=== PATIENT | male | born 1940 | race Caucasian/White ===

== ENCOUNTER 2016-08-02 01:26 | Inpatient (IN) | payer OTHER, MEDICARE ==
[~2016-08-02] VITALS: Ht 180.3 cm; Wt 94.3 kg
[2016-08-02] MEDS ORDERED: DILAUDID2 M1 PO (13:21)
[2016-08-02] MEDS ORDERED: MIRALAX17 G1 PO (13:21)
[2016-08-02] MEDS ORDERED: MS CONTIN15 M2 PO (13:21)
[2016-08-02] MEDS ORDERED: COLACE100 M1 PO (13:21)
[2016-08-02] MEDS ORDERED: ASPIRIN EC325 M2 PO (13:21)
[2016-08-02] MEDS ORDERED: PRILOSEC OTC20 M1 PO (13:21)
--- NOTE | 2016-08-02 13:26 | Patient Discharge Instructions ---
Discharge Instructions General Discharge Information You were seen/treated for: RIGHT HIP PAIN RELATED TO OSTEOARTHRITIS You had these procedures: RIGHT TOTAL HIP REPLACEMENT Watch for these problems: INCREASING PAIN DESPITE THE USE OF PAIN MEDICATION. INCREASING REDNESS, WARMTH, OR SWELLING. DRAINAGE OF ANY TYPE FROM INCISION. INABILITY TO BEAR WEIGHT ON RIGHT LEG. FEVER GREATER THAN 101.5 DEGREES. Do not soak the wound: Yes No bath, but you may shower: Yes Other wound care: KEEP WOUND CLEAN AND DRY. NO OINTMENTS OF ANY TYPE ON OR NEAR INCISION, NO EXCEPTIONS. DAILY DRY DRESSING CHANGES, FIRST DRESSING CHANGE TO BE DONE BY HOME CARE NURSE ON 08/04/2016. Special Instructions: ASPIRIN: YOU WILL BE REQUIRED TO TAKE ASPIRIN TWICE DAILY FOR A MINIMUM OF 3 WEEKS. THIS IS VERY IMPORTANT IT WILL HELP PROTECT YOU FROM DEVELOPING A BLOOD CLOT. PLEASE TAKE WITH FOOD TO PROTECT YOUR STOMACH LINING. YOU HAVE ALSO BEEN GIVEN PRILOSEC WHICH IS A MEDICATION THAT WILL ALSO HELP TO PROTECT YOUR STOMACH. CONSTIPATION: CONSTIPATION IS COMMON WITH THE USE OF PAIN MEDICATIONS. DR. VERA HAS GIVEN YOU COLACE AND MIRALAX TO HELP WITH YOUR BOWEL MOVEMENTS. PLEASE TAKE THESE MEDICATIONS DIRECTED. Please follow up with Dr. Oro as an outpatient Please follow up with as an outpatient Please follow up with as an outpatient Diet Continue normal diet: Yes Recommended Diet: Regular Additional DIET Information: ADVANCE TOLERATED Activity Full Activity/No Limits: No Activity Self Limited: Yes Pounds, do NOT lift more than: 10 Additional ACTIVITY Info: WEIGHT BEAR TOLERATED Acute Coronary Syndrome Inclusion Criteria At DC or during hospital stay patient has or had the following: ACS DIAGNOSIS No Discharge Core Measures Meds if any: Prescribed or Continued at Discharge Meds if any: NOT Prescribed or Continued at Discharge Congestive Heart Failure Inclusion Criteria At DC or during hospital stay patient has or had the following: CHF DIAGNOSIS No Discharge Core Measures Meds if any: Prescribed or Continued at Discharge Meds if any: NOT Prescribed or Continued at Discharge Cerebrovascular accident Inclusion Criteria At DC or during hospital stay patient has or had the following: CVA/TIA Diagnosis No Discharge Core Measures Meds if any: Prescribed or Continued at Discharge Meds if any: NOT Prescribed or Continued at Discharge Venous thromboembolism Inclusion Criteria VTE Diagnosis No VTE Type NONE VTE Confirmed by (Test) NONE Discharge Core Measures - Per Current guidelines, there needs to be overlap - treatment for the first 5 days of Warfarin therapy. - If discharged on Warfarin prior to 5 days of - overlap therapy, the patient will need to be - assessed for post discharge needs including - *Post discharge parental anticoagulation - *Warfarin and/or parental anticoagulation education - *Follow up date to check INR post discharge At least 5 days overlap therapy as Inpatient No Meds if any: Prescribed or Continued at Discharge Note: Overlap Therapy is Warfarin and Anticoagulant Meds if any: NOT Prescribed or Continued at Discharge
--- NOTE | 2016-08-02 13:27 | Admission Core Measures ---
Admission Meds I reviewed the following Meds: Current Medications Sig/Elizabeth Start time Last Medication Dose Stop Time Status Admin Acetaminophen 975 MG ONCE 08/02 NR (Tylenol) 08/02 2358 Oxycodone HCl 10 MG ONCE 08/02 NR (Roxicodone) 08/02 2358 Acute Coronary Syndrome Inclusion Criteria ACS Diagnosis No Inpatient Core Measures LDL Reminder: If No, please order W/I first 24hr of stay Congestive Heart Failure Inclusion Criteria CHF Diagnosis No Cerebrovascular accident Inclusion Criteria CVA/TIA Diagnosis No Inpatient Core Measures Bedside Swallow Eval Reminder: If BSE failed, place ST order Antithrombotic Reminder: Order Antithrombotic Medication by end of day 2 Antithrombotic Reminder: Document Reason Antithrombotic Not ordered by end of day 2 AFIB/Flutter Reminder: If Present, add to problem list AFIB/Flutter Reminder: Order Anticoag Medication for pts with AFIB/Flutter Atherosclerosis Reminder: If Present, add to problem list LDL Reminder: If No, please order W/I first 24hr of stay PT Order Reminder: If No, please order Venous thromboembolism Inpatient Core Measures VTE Risk Factors: Age > 40, Surgery No [facility] VTE prophylaxis d/t No contraindications No VTE Pharm Prophylaxis d/t No contraindications Inclusion Criteria - Per Current guidelines, there needs to be overlap - treatment for the first 5 days of Warfarin therapy. - Parenteral Anticoagulation (IV or SC) needs to be - given along with Warfarin therapy. VTE Diagnosis No VTE Type NONE VTE Confirmed by (Test) NONE Problem List As ranked by this Provider includes Assessment & Plan 1. Unilateral primary osteoarthritis, right hip HOME MEDS Home Med List Aspirin (Ecotrin*) 325 MG TABLET.DR 1 TAB PO BID ANTICOAGULATION Docusate Sodium (Colace) 100 MG CAPSULE 1 CAP PO BID CONSITPATION Hydromorphone HCl (Dilaudid) 2 MG TABLET 1-2 TAB PO Q4-6 PRN PAIN Morphine Sulfate (Ms Contin) 15 MG TABLET.ER 1 TAB PO BID PAIN Omeprazole Magnesium (Prilosec Otc) 20 MG TABLET.DR 1 TAB PO DAILY GI PROTECTION Polyethylene Glycol 3350 (Miralax) 17 GRAM POWD.PACK 1 PAC PO DAILY CONSTIPATION
--- NOTE | 2016-08-02 13:32 | Surgical Discharge Summary ---
Visit Information Visit Dates Admission Date: 08/02/16 Discharge Date: 08/06/16 History of Present Illness Chief Complaint: RIGHT HIP PAIN RELATED TO OSTEOARTHRITIS Surgical History Pertinent Surgical History: non-contributory Review of Systems: SEE H&P Hospital Course Course Attending Physician: DUSTIN VERA MD Primary Care Physician: MIKE MORFIN,[place] Hospital Course: HAMLET WAS ADMITTED TO THE HOSPITAL ON 08/02/2016 FOR AN ELECTIVE RIGHT TOTAL HIP REPLACEMENT. HE TOLERATED THE PROCEDURE WELL. HE WAS TRANSFERRED TO A GENERAL SURGICAL FLOOR. HIS VITAL SIGNS WERE STABLE AND WITHIN NORMAL LIMITS. HE REMAINED NEUROVASCULARLY INTACT. ON POST-OP DAY 3, HE DEVELOPED AN EXPRESSIVE APHASIA. HE WAS EVALUATED BY NEUROLOGY, CT IMAGING WAS OBTAINED AND IT WAS DETERMINED THAT HE CAN BE FOLLOWED AN OUTPATIENT. HIS DIET WAS ADVANCED AND TOELRATED. HE VOIDED SPONTANEOUSLY. HIS PAIN WAS CONTROLLED WITH ORAL PAIN MEDICATIONS. HE WAS EVALUATED AND TREATED BY PHYSICAL THERAPY. HE WAS DEEMED APPROPRIATE FOR DISCHARGE FROM HOSPITAL Allergies: Coded Allergies: Penicillins (CHILDHOOD 07/25/16) Disposition Summary Disposition Principal Diagnosis: RIGHT HIP UNILATERAL PRIMARY OSTEOARTHRITIS Additional Diagnosis: NONE Discharge Disposition: home health services Discharge Instructions General Discharge Information Code Status: Full Code Patient's Diet: REGULAR, ADVANCE TOLERATED Patient's Activity: WEIGHT BEAR TOLERATED ON RIGHT LEG Follow-Up Instructions/Appts: PLEASE CONTACT DR. VERA'S TO ARRANGE AND/OR CONFIRM FOLLOW UP APPOINTMENT. HE WOULD LIKE FOR YOU TO BE SEEN IN HIS OFFICE IN 6 WEEKS FROM DATE OF SURGERY. Medications at Discharge Discharge Medications: Start taking the following new medications: Aspirin (Ecotrin*) 325 MG TABLET. 1 Tablet ORAL DAILY Qty = 60 No Refills Comments: Last Taken: 08/06/16 Time: 0840 Clopidogrel Bisulfate (Plavix) 75 MG TABLET 75 Milligram ORAL DAILY Qty = 30 No Refills Comments: Last Taken: 08/06/16 Time: 0840 Atorvastatin Calcium (Atorvastatin Calcium) 20 MG TABLET 20 Milligram ORAL 5 PM Qty = 30 No Refills Comments: Last Taken: 08/05/16 Time: 1610 Docusate Sodium (Colace) 100 MG CAPSULE 1 Capsule ORAL TWICE DAILY Qty = 14 No Refills Instructions: DISCONTINUE USE IF YOU DEVELOP LOOSE STOOL OR DIARRHEA Comments: Last Taken: 08/06/16 Time: 0840 Hydromorphone HCl (Dilaudid) 2 MG TABLET 1-2 Tablet ORAL EVERY 4-6 HOURS as needed for PAIN Qty = 36 No Refills Comments: Last Taken: 07/16/16 Time: 0500 Polyethylene Glycol 3350 (Miralax) 17 GRAM POWD.PACK 1 Packet ORAL DAILY Qty = 7 No Refills Instructions: dissolve in water, DISCONTINUE USE IF YOU DEVELOP LOOSE STOOL OR DIARRHEA Comments: Last Taken: 08/06/16 Time: 0840 Morphine Sulfate (Ms Contin) 15 MG TABLET.ER 1 Tablet ORAL TWICE DAILY Qty = 6 No Refills Comments: Last Taken: NOT GIVEN IN HOSPITAL Time: Omeprazole Magnesium (Prilosec Otc) 20 MG TABLET.DR 1 Tablet ORAL DAILY Qty = 30 No Refills Comments: Last Taken: 08/06/16 Time: 0630
--- NOTE | 2016-08-02 14:45 | RADIOLOGY REPORT ---
EXAMINATION: XR HIP, RIGHT CLINICAL INFORMATION: Status post right hip replacement COMPARISON: None TECHNIQUE: AP and crosstable lateral views of the right hip. FINDINGS: The right hip arthroplasty components appear well-seated in near-anatomic alignment. There is some air in the soft tissues. IMPRESSION: Intact right total hip arthroplasty. Expected postoperative changes.
--- NOTE | 2016-08-02 15:03 | Operative Report ---
Operative/Inv Procedure Report Surgery Date: 08/02/16 Name of Procedure: Right total hip replacement Pre-Operative Diagnosis: Primary right hip DJD Post-Operative Diagnosis: Same Estimated Blood Loss: 250 Surgeon/Manager Of Production: JODY MORFIN,DUSTIN Hallman Anesthesia: block Operative/Procedure Note Note: Description of Procedure: The patient was taken to the operating room and positively identified. After induction of spinal anesthesia and administration of appropriate pre-operative antibiotics, the patient was positioned supine on the operating room table and all bony prominences were well padded. After performing a surgical timeout, the right lower extremity was prepped and draped in the usual sterile fashion. A direct anterior approach was made to the right hip. The incision was carried sharply through superficial soft tissues to the level of the fascia. Meticulous hemostasis was maintained with Bovie electocautery. The fascia over the tensor fascia gera muscle was opened sharply and the interval between the TFL and the sartorius was entered bluntly taking care to stay lateral to the lateral femoral cutaneous nerve. Retractors were placed around the femoral neck and the pericapsular fat was identified. The ascending branches of the lateral femoral circumflex vessels were identified and carefully coagulated. The pericapsular fat and anterior capsule were then resected. A napkin ring osteotomy was performed and the femoral head was removed without difficulty. Attention was then turned to the acetabulum. After appropriate placement of retractors, the acetabulum was exposed. Soft tissue was cleaned from the acetabular margin and notch. Overhanging osteophytes were removed and the teardrop was exposed. The acetabulum was then sequentially reamed to accept a 58 mm Fabiana Tritanium hemispherical solid back shell. This was impacted into place in the appropriate position and fitted with a 36 mm Trident X3 zero degree polyethylene insert. Attention was then turned to the femur. After performing the appropriate ligament releases, the proximal femur was exposed. It was then sequentially broached to accept a size 5 Garwood accolade 2 stem. This was trialed for leg length and stability. The trial component was removed and the final component was impacted into place. The trunnion was carefully cleaned and fit with a 36 mm, +0 Biolox delta ceramic femoral head. The hip was reduced and put through a full range of motion and found to be stable. The articular space was then irrigated with sterile saline. The periarticular soft tissues were infilitrated with Marcaine. The fascial layer was closed with interrupted #1 vicryl suture and the skin was re-approximated with interrupted 2 -0 vicryl. The skin was closed with a running 3-0 V-Lock suture. Steri-strips and a sterile dressing were applied. The patient was awakened and taken to the recovery room in satisfactory condition.
[2016-08-02 16:00] VITALS: BP 120/60
--- NOTE | 2016-08-02 16:26 | PN- Orthopedic ---
Subjective Subjective: The patient was seen this afternoon postoperatively. He reports that his pain is under adequate control and has no other complaints at the current time. He is eager to get up and ambulate with physical therapy this afternoon. Objective Vital Signs and I&Os Vital signs: Blood pressure 110/60, pulse 65, temperature 97.0, O2 sats saturation 97% on 2 L via nasal cannula I's and O's: 1500 ML's in of lactated Ringer's/patient is due to void/EBL 100 Physical Exam: Gen.: Alert and in no obvious distress Skin: Warm and dry Cardiac: S1-S2 regular Pulmonary: Bilateral breath sounds are equal and decreased at bases Extremities: Bilateral lower extremities are warm without calf tenderness or significant edema. Gross motor and sensory are intact. Right hip surgical dressing is clean, dry, and intact without signs of infection. Assessment/Plan Assessment/Plan Assessment: 76-year-old male status post right total hip arthroplasty. Postoperative the patient is progressing as expected, his pain is under adequate control, and he has yet to void postoperatively. Plan: Out of bed with physical therapy patient is weightbearing as tolerated Monitor for postoperative void Strict I's and O's Advance diet as tolerated Resume home medications 2 doses of postoperative prophylactic antibiotics Continue current pain regiment Start aspirin 325 mg by mouth twice a day first dose tonight Core Measures/Miscellaneous Venous Thromboembolism VTE Risk Factors: Age > 40, Surgery VTE Contraindications: No Contraindications VTE Diagnosis: No VTE Type: NONE VTE Confirmed by (Test): NONE Beta Bharathi Is Beta Bharathi a Home Med? No Antibiotics Is Patient on Antibiotics? Yes If Yes: prophylaxis
--- NOTE | 2016-08-02 16:52 | NUR ---
Physical Therapy. Pt spoke w/ nsg re: mobilizing pt tonight if RLE is not too numb as pt came to the floor too late to be evaluated by PT this evening. Nsg expressed understanding. PT will f/u for evaluation in the AM.
[2016-08-02 18:00] VITALS: BP 116/64
[2016-08-02 20:15] VITALS: BP 118/62
[2016-08-02 23:06] VITALS: BP 100/70
[2016-08-03 03:35] VITALS: BP 114/64
[2016-08-03 07:00] VITALS: BP 116/80
--- NOTE | 2016-08-03 07:31 | PN- Orthopedic ---
Subjective Subjective: The patient was seen this morning postoperatively day #1. He reports that his pain is under adequate control however he is very concerned about being discharged home and would prefer to go to rehabilitation. He had no other complaints at the current time. Objective Vital Signs and I&Os Vital Signs Date Time Temp Pulse Resp B/P B/P Pulse O2 O2 Flow FiO2 Mean Ox Delivery Rate 08/03 0335 98.0 68 18 114/64 96 Room Air 08/02 2306 97.7 65 20 100/70 92 08/02 2015 97.7 66 20 118/62 93 08/02 1800 97.0 54 18 116/64 97 Room Air 08/02 1600 97.4 60 20 120/60 96 Room Air Intake & Output 08/03 0800 08/03 0000 08/02 1600 08/02 0800 08/02 0000 08/01 1600 Intake Total 1440 Output Total 450 Balance 990 Intake, IV 600 Intake, Oral 840 Output, Urine 450 Patient 208 lb Weight Weight Reported by Patient Measurement Method Physical Exam: Gen.: Alert and in no obvious distress Skin: Warm and dry Extremities: Bilateral lower extremities are warm without calf tenderness or significant edema. Gross motor and sensory are intact. Right hip surgical dressing is clean, dry, and intact without signs of infection. Assessment/Plan Assessment/Plan Assessment: 76-year-old male status post right total hip arthroplasty postoperative day 1. The patient is progressing as expected and his pain is under adequate control. Plan: Out of bed with physical therapy Hep-Lock IV fluids Continue current pain regiment GI and DVT prophylaxis Case management for discharge planning First surgical dressing change tomorrow Follow-up morning laboratory studies Core Measures/Miscellaneous Venous Thromboembolism VTE Risk Factors: Age > 40, Surgery VTE Contraindications: No Contraindications VTE Diagnosis: No VTE Type: NONE VTE Confirmed by (Test): NONE Beta Bharathi Is Beta Bharathi a Home Med? No Antibiotics Is Patient on Antibiotics? No
[2016-08-03 08:18] LABS: ABSOLUTE BASOPHIL COUNT 0 /CUMM (0.0-0.2); ABSOLUTE EOSINOPHIL COUNT 0 /CUMM (0.0-0.7); ABSOLUTE GRANULOCYTE CT 7.3 /CUMM (1.4-6.5); ABSOLUTE LYMPH COUNT 0.9 /CUMM (1.2-3.4); ABSOLUTE MONOCYTE COUNT 0.9 /CUMM (0.10-0.60); BASOPHIL % 0 % (0.0-2.0); EOSINOPHIL % 0.1 % (0-5); GRANULOCYTE % 79.3 % (42.2-75.2); HEMATOCRIT 35.8 % (42-52); MEAN CORPUSCULAR HGB 32.6 PG (27.0-31.0); MEAN CORPUSCULAR HGB CONC 34.3 G/DL (33.0-37.0); MEAN CORPUSCULAR VOLUME 94.9 FL (80.0-94.0); PLATELET COUNT 145 /CUMM (130-400); RED BLOOD CELL CT 3.77 /CUMM (4.70-6.10); WHITE BLOOD CELL COUNT 9.2 /CUMM (4.8-10.8)
[2016-08-03 14:47] VITALS: BP 124/70
--- NOTE | 2016-08-03 15:05 | NUR ---
NURSING NOTE: PT MEDICATED WITH BREAKTHROUGH PAIN MED PER HIS REQUEST, PT REQUESTING TO "NOT HAVE SOMEONE COME IN HERE EVERY HOUR, CLOSE MY DOOR AND HARVESTER OPERATOR THE LIGHTS" EYE MASK AND EAR PLUS GIVEN PER PT REQUEST. PT STATES "I JUST DID THE STAIRS, IT WAS ROUGH I NEED TO REST." SIGNIFICANT OTHER AT BEDSIDE. BEDSIDE REPORT DONE WITH NEXT SHIFT RN AT THIS TIME. PT EDUCATED TO CALL FOR ASSIST, CONT TO MONITOR,. GENERAL MILLING SUPERINTENDENT AWARE.
[2016-08-03 22:03] VITALS: BP 136/70
[2016-08-04 06:00] VITALS: BP 138/60
[2016-08-04 06:32] VITALS: BP 140/66
[2016-08-04 07:15] LABS: ABSOLUTE BASOPHIL COUNT 0 /CUMM (0.0-0.2); ABSOLUTE EOSINOPHIL COUNT 0 /CUMM (0.0-0.7); ABSOLUTE GRANULOCYTE CT 6.9 /CUMM (1.4-6.5); ABSOLUTE LYMPH COUNT 0.9 /CUMM (1.2-3.4); ABSOLUTE MONOCYTE COUNT 0.9 /CUMM (0.10-0.60); BASOPHIL % 0.4 % (0.0-2.0); EOSINOPHIL % 0.3 % (0-5); GRANULOCYTE % 78.4 % (42.2-75.2); HEMATOCRIT 38.3 % (42-52); MEAN CORPUSCULAR HGB 32.5 PG (27.0-31.0); MEAN CORPUSCULAR HGB CONC 34.5 G/DL (33.0-37.0); MEAN CORPUSCULAR VOLUME 94.2 FL (80.0-94.0); MEAN PLATELET VOLUME 8.7 FL (7.4-10.4); PLATELET COUNT 170 /CUMM (130-400); RBC DISTRIBUTION WIDTH 13.4 % (11.5-14.5); RED BLOOD CELL CT 4.07 /CUMM (4.70-6.10); WHITE BLOOD CELL COUNT 8.8 /CUMM (4.8-10.8)
--- NOTE | 2016-08-04 07:37 | CT SCAN REPORT ---
EXAMINATION: CT HEAD WITHOUT CONTRAST CLINICAL INFORMATION: Acute mental status changes. COMPARISON: None. TECHNIQUE: Contiguous axial imaging was performed from the skull base to vertex without intravenous contrast. DLP: 834 mGy-cm. FINDINGS: There is no evidence of acute intracranial hemorrhage or territorial infarction. No abnormal mass effect or midline shift is seen. Evans to white matter differentiation is well preserved. No extra-axial fluid collections are identified. No hydrocephalus. Proportional prominence of the ventricles and sulcal spaces is consistent with mild volume loss. Patchy periventricular and deep white matter hypoattenuation is consistent with mild small vessel ischemic changes. The osseous structures and soft tissues are normal. The mastoid air cells and visualized portions of the paranasal sinuses are well aerated. IMPRESSION: No acute intracranial pathology. Mild volume loss with small vessel ischemic changes.
--- NOTE | 2016-08-04 08:24 | NUR ---
THIS RN CALLED INTO ROOM BY SURGICAL GARY RASHEED. PATIENT AWAKE, BUT VISIBLY CONFUSED AND DISORIENTED. PT ALSO UNABLE TO FOLLOW VERBAL COMMANDS. PT MINIMALLY VERBAL AND UNABLE TO ANSWER QUESTIONS. RAPID RESPONSE CALLED. PT VITALS FOLLOWS: BP 138/60, HR 107, O2 SAT 85% ON ROON AIR, BLOOD SUGAR 138, RR 20. PT PLACED ON 2L NASAL CANNULA, LABS ORDERED AND DRAWN, EKG DONE AT BEDSIDE BY MST, PT PLACED ON EMISSION TECHNICIAN. ORDER PLACED TO TRANSFER PT TO TELEMETRY. NO FURTHER ORDERS AT THIS TIME. PT TRANSPORTED ON MONITOR WITH . REPORT GIVEN TO CAPRI MESSINA. SEE RAPID RESPONSE SHEET.
--- NOTE | 2016-08-04 08:34 | PN- Orthopedic ---
Subjective Subjective: POD#2 S/P RIGHT FINESSE UPON ARRIVAL TO ROOM AT BEDSIDE FOR ROUTINE DRSG CHANGE ALL RESPONSES TO QUESTIONS WAS "UM, UM, UM" AFTER INITIAL VITALS WERE TAKEN A RAPID RESPONSE/ STROKE ALERT WAS CALLED. INITIAL MINI NEURO EXAM BY MEDICAL TEAM WAS UNREMARKABLE. BUT CLEARLY HE WAS UNABLE TO EXPRESS ANY CLEAR RESPONSES TO QUESTIONING. Objective Vital Signs and I&Os Vital Signs Date Time Temp Pulse Resp B/P B/P Pulse O2 O2 Flow FiO2 Mean Ox Delivery Rate 08/04 0702 93 Nasal 4.0L Cannula 08/04 0632 98.9 75 18 140/66 92 Room Air 08/04 0600 107 85 138/60 Room Air 08/03 2203 99.8 76 19 136/70 91 Room Air 08/03 1515 Room Air 08/03 1447 97.6 68 20 124/70 92 Room Air Intake & Output 08/04 1600 08/04 0800 08/04 0000 08/03 1600 08/03 0800 08/03 0000 Intake Total 240 036 590 7725 Output Total 200 725 850 900 450 Balance -200 -485 125 20 990 Intake, IV 75 800 600 Intake, Oral 240 900 120 840 Number 0 Bowel Movements Output, Urine 200 725 850 900 450 Patient 208 lb Weight Weight Reported by Patient Measurement Method Physical Exam: CV: rrr lungs: clear abd: soft, +bs ext: drsg changed wound c/d/i no calf tenderness bilat moving all extremities without gross weakness Assessment/Plan Assessment/Plan ortho stable new onset expressive aphagia and mental status changes plan stat head ct transfer to tele neuro consult-dr daily f/u am labs continue asa 325 bid for dvt prophylaxis hold am pt until neuro consult complete Core Measures/Miscellaneous Venous Thromboembolism VTE Risk Factors: Age > 40, Surgery VTE Contraindications: No Contraindications VTE Diagnosis: No VTE Type: NONE VTE Confirmed by (Test): NONE Beta Bharathi Is Beta Bharathi a Home Med? No Antibiotics Is Patient on Antibiotics? No
[2016-08-04 08:42] VITALS: BP 134/64
--- NOTE | 2016-08-04 11:02 | NUR ---
PATIENT TRANSFER TO TELE FROM [address] [place] [address] AFTER RAPID RESPONSE AND STROKE ALERT WERE CALLED. PATIENT ARRIVED TO UNIT ALERT AND ORIENTATED SELF. PATIENT HAS DELAYED VERBAL RESPONSE WHEN QUESTIONED. CONFUSED TO PLACE AND TIME. PUPIL EQUALLY REACTED TO LIGHT AND ACCOMMODATION. HANDS AND PEDAL PUSHES STRONG BUT SLIGHT DECREASED IN RIGHT LOWER EXTREMITY DUE TO RECENT RIGHT HIP SURGERY. VITAL ASSSESED. STABLE AND DOCUMENTED. ON 6L OF O2 VIA NASAL CANULA. SAT 94%. NO SOB NOTED. RIGHT HIP DSG CDI. POSITIVE CMS. PATIENT NOW AWAITS NEUROLOGIST CONSULT. NPO FOR NOW UNTIL SWALLOW EVAL IS DONE BY SPEECH.
[2016-08-04 12:27] VITALS: BP 134/78
--- NOTE | 2016-08-04 13:58 | NUR ---
PHYSICAL THERAPY- PT S/P RAPID RESPONSE/STROKE ALERT. S/W SURGICAL PA WHO REPORTED TO DEFER TX AT THIS TIME 2* NEURO WORKUP PENDING. PT TRANSFERRED TO TELEMETRY. WILL DISCONTINUE P.T. AT THIS TIME DURING WORKUP, PLEASE RECONSULT P.T. ONCE PT MEDICALLY STABLE AND APPROPRIATE. THANK YOU.
--- NOTE | 2016-08-04 15:50 | Cons- Neurology ---
General Information and HPI Consulting Request Date of Consult: 08/04/16 Requested By: DUSTIN VERA MD Reason for Consult: Transient inability to speak Source of Information: patient, medical staff Exam Limitations: no limitations History of Present Illness: 76-year-old man who underwent right total hip replacement 2 days ago and he was stable yesterday was found on morning rounds unable to speak. According to the PA present he could not respond to questions producing only "um, um um" no other focal neurologic deficits were noted and through the morning his speech returned. He himself appears to be only partially aware aware that he had a problem and at first thought he had trouble due to not sleeping well. He says he could not understand why there was such concern at the time. He denies any associated headache, visual disturbance, currently he feels everything is back to normal and he is has no lateralized weakness or numbness. Chest pain and palpitations denied. No prior neurologic history. He had not been taking aspirin prior to surgery. Allergies/Medications Allergies: Coded Allergies: Penicillins (CHILDHOOD 07/25/16) Home Med List: Aspirin (Ecotrin*) 325 MG TABLET.DR 1 TAB PO BID ANTICOAGULATION Docusate Sodium (Colace) 100 MG CAPSULE 1 CAP PO BID CONSITPATION DISCONTINUE USE IF YOU DEVELOP LOOSE STOOL OR DIARRHEA Hydromorphone HCl (Dilaudid) 2 MG TABLET 1-2 TAB PO Q4-6 PRN PAIN Morphine Sulfate (Ms Contin) 15 MG TABLET.ER 1 TAB PO BID PAIN Omeprazole Magnesium (Prilosec Otc) 20 MG TABLET.DR 1 TAB PO DAILY GI PROTECTION Polyethylene Glycol 3350 (Miralax) 17 GRAM POWD.PACK 1 PAC PO DAILY CONSTIPATION dissolve in water, DISCONTINUE USE IF YOU DEVELOP LOOSE STOOL OR DIARRHEA Current Medications: Current Medications Sig/Elizabeth Start time Last Medication Dose Route Stop Time Status Admin Aspirin 325 MG BID 08/02 2199 AC 08/04 PO 1238 Dextrose/Sodium 1,000 ML .Q10H 08/04 1200 AC 08/04 Chloride IV 1218 Docusate Sodium 100 MG BID 08/02 2199 AC 08/04 PO 1238 Hydromorphone HCl 2 MG Q4P PRN 08/02 1645 AC 08/03 PO 0729 Hydromorphone HCl 4 MG Q4P PRN 08/02 1645 AC 08/04 PO 1215 Ketorolac 15 MG Q8P PRN 08/02 1645 AC Tromethamine IV 08/05 1641 Morphine Sulfate 2 MG Q2P PRN 08/02 1645 AC 08/03 IV 1458 Omeprazole 40 MG DAILY AC 08/03 0700 AC 08/04 PO 0626 Ondansetron HCl 4 MG Q6P PRN 08/02 1645 AC IV Polyethylene Glycol 17 GM DAILY 08/03 1000 AC 08/04 PO 1240 Promethazine HCl 12.5 MG Q6P PRN 08/02 1645 AC IV 08/09 1314 Review of Systems Review of Systems: ROS: A complete medical systems review was obtained. No pertinent complaints were found. Past History Medical History Blood Transfusion Hx: No Neurological: NONE EENT: NONE Cardiovascular: NONE Respiratory: NONE Gastrointestinal: NONE Hepatic: NONE Renal: NONE Musculoskeletal: degen joint disease Psychiatric: NONE Endocrine: NONE Blood Disorders: NONE Cancer(s): prostate cancer Surgical History Surgical History: non-contributory Psychosocial History Where Do You Live? Home Smoking Status: Former Smoker Exam & Diagnostic Data Vital Signs and I&O Vital Signs Date Time Temp Pulse Resp B/P B/P Pulse O2 O2 Flow FiO2 Mean Ox Delivery Rate 08/04 1227 99.8 79 20 134/78 96 Nasal 3.0L Cannula 08/04 0842 99.6 97 22 134/64 95 Nasal 6.0L Cannula 08/04 0800 94 Nasal 6.0L Cannula 08/04 0702 93 Nasal 4.0L Cannula 08/04 0632 98.9 75 18 140/66 92 Room Air 08/04 0600 107 85 138/60 Room Air 08/03 2203 99.8 76 19 136/70 91 Room Air Intake & Output 08/04 1600 08/04 0800 08/04 0000 Intake Total 705 240 Output Total 550 200 725 Balance 155 -200 -485 Intake, IV 225 Intake, Oral 480 240 Output, Urine 550 200 725 Patient 208 lb Weight Physical Exam: On exam the patient appeared generally well and in no distress. Mental status: Alert, attentive, fully oriented, no language errors, recall and general fund of knowledge seem intact Funduscopic unremarkable Visual gruber full , Eye movements full without nystagmus, pupils midsize equal round and reactive to light. Facial movement normal bilaterally Facial sensation normal bilaterally Hearing intact bilaterally Uvula elevates midline Tongue protrusion is midline Shoulder shrug symmetric Motor power and tone normal in all 4 extremities Sensation intact to primary modes Tendon reflexes normal and symmetric without pathologic signs Coordination no ataxia Gait [testing deferred] Last 48 Hours of Lab Results: Laboratory Tests 08/04 08/04 0706 0704 Chemistry Sodium (137 - 145 mmol/L) 137 Potassium (3.5 - 5.1 mmol/L) 4.2 Chloride (98 - 107 mmol/L) 102 Carbon Dioxide (22 - 30 mmol/L) 24 Anion Gap (5 - 16) 11 BUN (9 - 20 mg/dL) 16 Creatinine (0.7 - 1.2 mg/dL) 0.8 Estimated GFR (>60 ml/min) > 60 BUN/Creatinine Ratio (7 - 25 %) 20.0 Lactic Acid (0.7 - 2.1 mmol/L) 1.4 Magnesium (1.6 - 2.3 mg/dL) 1.8 Troponin I (<0.11 ng/ml) < 0.01 Hematology CBC w Diff NO MAN DIFF REQ WBC (4.8 - 10.8 /CUMM) 8.8 RBC (4.70 - 6.10 /CUMM) 4.07 L Hgb (14.0 - 18.0 G/DL) 13.2 L Hct (42 - 52 %) 38.3 L MCV (80.0 - 94.0 FL) 94.2 H MCH (27.0 - 31.0 PG) 32.5 H RDW (11.5 - 14.5 %) 13.4 Plt Count (130 - 400 /CUMM) 170 MPV (7.4 - 10.4 FL) 8.7 Gran % (42.2 - 75.2 %) 78.4 H Lymphocytes % (20.5 - 51.1 %) 10.7 L Monocytes % (1.7 - 9.3 %) 10.2 H Eosinophils % (0 - 5 %) 0.3 Basophils % (0.0 - 2.0 %) 0.4 Absolute Granulocytes (1.4 - 6.5 /CUMM) 6.9 H Absolute Lymphocytes (1.2 - 3.4 /CUMM) 0.9 L Absolute Monocytes (0.10 - 0.60 /CUMM) 0.9 H Absolute Eosinophils (0.0 - 0.7 /CUMM) 0 Absolute Basophils (0.0 - 0.2 /CUMM) 0 PUBS MCHC (33.0 - 37.0 G/DL) 34.5 04 0728 Chemistry Sodium (137 - 145 mmol/L) 137 Potassium (3.5 - 5.1 mmol/L) 4.1 Chloride (98 - 107 mmol/L) 104 Carbon Dioxide (22 - 30 mmol/L) 24 Anion Gap (5 - 16) 8 BUN (9 - 20 mg/dL) 16 Creatinine (0.7 - 1.2 mg/dL) 0.8 Estimated GFR (>60 ml/min) > 60 BUN/Creatinine Ratio (7 - 25 %) 20.0 Hematology CBC w Diff NO MAN DIFF REQ WBC (4.8 - 10.8 /CUMM) 9.2 RBC (4.70 - 6.10 /CUMM) 3.77 L Hgb (14.0 - 18.0 G/DL) 12.3 L Hct (42 - 52 %) 35.8 L MCV (80.0 - 94.0 FL) 94.9 H MCH (27.0 - 31.0 PG) 32.6 H RDW (11.5 - 14.5 %) 13.0 Plt Count (130 - 400 /CUMM) 145 MPV (7.4 - 10.4 FL) 9.0 Gran % (42.2 - 75.2 %) 79.3 H Lymphocytes % (20.5 - 51.1 %) 10.3 L Monocytes % (1.7 - 9.3 %) 10.3 H Eosinophils % (0 - 5 %) 0.1 Basophils % (0.0 - 2.0 %) 0 L Absolute Granulocytes (1.4 - 6.5 /CUMM) 7.3 H Absolute Lymphocytes (1.2 - 3.4 /CUMM) 0.9 L Absolute Monocytes (0.10 - 0.60 /CUMM) 0.9 H Absolute Eosinophils (0.0 - 0.7 /CUMM) 0 Absolute Basophils (0.0 - 0.2 /CUMM) 0 PUBS MCHC (33.0 - 37.0 G/DL) 34.3 Imaging/Other Studies: CT scan: There is no evidence of acute intracranial hemorrhage or territorial infarction. No abnormal mass effect or midline shift is seen. Evans to white matter differentiation is well preserved. No extra-axial fluid collections are identified. No hydrocephalus. Proportional prominence of the ventricles and sulcal spaces is consistent with mild volume loss. Patchy periventricular and deep white matter hypoattenuation is consistent with mild small vessel ischemic changes. The osseous structures and soft tissues are normal. The mastoid air cells and visualized portions of the paranasal sinuses are well aerated. Assessment/Plan Assessment: Transient ischemic attack causing transient aphasia. From the description of the event from staff it is doubtful this was simply due to sleepiness, etc. Aspirin had been started prior to this event. Recommendations: Continue telemetry Carotid Dopplers Echocardiogram Add Plavix 75 MG daily to the aspirin Fasting lipid profile Add atorvastatin 40 MG daily Will follow-up Consult Acknowledgment - Thank you for your consult request.
[2016-08-04 16:03] VITALS: BP 138/60
--- NOTE | 2016-08-04 17:00 | ULTRASOUND REPORT ---
EXAMINATION: DUPLEX BILATERAL CAROTID ULTRASOUND CLINICAL INFORMATION: Acute mental status change. COMPARISON: None. TECHNIQUE: \H\B\N\ilateral carotid US was performed using real-time ultrasound and Doppler techniques (integrating B-mode 2D vascular images, Doppler spectral analysis and color flow Doppler imaging). These techniques were utilized to interrogate the extracranial carotid and vertebral arteries bilaterally. The degree of stenosis is based off criteria similar to NASCET. FINDINGS: Right side: 1. Small amount of hyperechoic plaque is seen in the ECA/ICA region. 2. The common carotid artery velocity is 119 cm/s. 3. The internal carotid artery velocities are 103 cm/s systolic and 41 cm/s diastolic. 4. The external carotid artery velocity is 163 cm/s. Left side: 1. Small amount of hyperechoic plaque is seen in the ECA/ICA region. 2. The common carotid artery velocity is 133 cm/s. 3. The internal carotid artery velocities are 135 cm/s systolic and 59 cm/s diastolic. 4. The external carotid artery velocity is 166 cm/s. ADDITIONAL FINDINGS: 1. The vertebral arteries show antegrade flow. IMPRESSION: 1. RIGHT: Minimal, nonhemodynamically significant stenosis of the proximal right internal carotid artery corresponding to a 0-49% stenosis by velocity criteria. 2. LEFT: Moderate, hemodynamically significant stenosis of the proximal left internal carotid artery corresponding to a 50-79% stenosis by velocity criteria.
[2016-08-05 00:31] VITALS: BP 146/76
[2016-08-05 08:11] LABS: ABSOLUTE BASOPHIL COUNT 0 /CUMM (0.0-0.2); ABSOLUTE EOSINOPHIL COUNT 0.1 /CUMM (0.0-0.7); ABSOLUTE GRANULOCYTE CT 6.3 /CUMM (1.4-6.5); ABSOLUTE LYMPH COUNT 1.4 /CUMM (1.2-3.4); BASOPHIL % 0.4 % (0.0-2.0); EOSINOPHIL % 1.3 % (0-5); HEMATOCRIT 38.4 % (42-52); MEAN CORPUSCULAR HGB 32.5 PG (27.0-31.0); MEAN CORPUSCULAR VOLUME 95.7 FL (80.0-94.0); PLATELET COUNT 172 /CUMM (130-400); RBC DISTRIBUTION WIDTH 13.5 % (11.5-14.5); RED BLOOD CELL CT 4.01 /CUMM (4.70-6.10); WHITE BLOOD CELL COUNT 8.9 /CUMM (4.8-10.8)
[2016-08-05 08:23] VITALS: BP 118/68
--- NOTE | 2016-08-05 09:27 | PN- Housestaff ---
See Addendum Subjective Follow-up For: TIA Status post right hip replacement Complaints: no complaints Tele-Events Since Last Visit: Double sinus rhythm, HR 69 through 99. QRS 0.14. PVCs Subjective: Interval history: Overnight there were no acute events. This morning the patient does state that he feels better. He denies any headache, blurry vision, chest pain, palpitations, shortness of breath at this time. He does report some mild pain in his right foot. The patient's significant other does reports that he is noticeably more disoriented and he is not at his baseline. He does have a noticeable difficulty with communicating his thoughts on certain topics. Review of Systems Constitutional: Reports: see HPI. EENTM: Reports: no symptoms. Cardiovascular: Reports: no symptoms. Respiratory: Reports: no symptoms. Gastrointestinal: Reports: no symptoms. Musculoskeletal: Reports: see HPI. Objective Last 24 Hrs of Vital Signs/I&O Vital Signs Date Time Temp Pulse Resp B/P B/P Pulse O2 O2 Flow FiO2 Mean Ox Delivery Rate 08/05 08 98.2 82 18 118/68 95 Room Air 08/05 0031 97.9 77 20 146/76 95 Nasal 2.0L Cannula 08/05 0000 Nasal 2.0L Cannula 08/04 1603 98.5 75 18 138/60 96 Nasal 2.0L Cannula 08/04 1600 Nasal 2.0L Cannula Intake & Output 08/05 1600 08/05 0800 08/05 0000 Intake Total 400 770 Output Total 300 700 Balance 100 70 Intake, IV 400 50 Intake, Oral 720 Output, Urine 300 700 Physical Exam General Appearance: Alert, Cooperative, No Acute Distress, patient appears slightly disoriented to place. Skin: No Rashes HEENT: PERRLA, EOMI, Mucous Membr. moist/pink Cardiovascular: Regular Rate, Normal S1, Normal S2 Lungs: Clear to Auscultation, Normal Air Movement Last 24 Hrs of Lab/[place] Results Last 24 Hrs of Labs/Mics: Laboratory Tests 08/05/16 0630: Anion Gap 9, Estimated GFR > 60, BUN/Creatinine Ratio 18.6, Phosphorus 3.4, Magnesium 1.9, Triglycerides 76, Cholesterol 161, LDL Cholesterol, Calc 93, HDL Cholesterol 53, Cholesterol/HDL Ratio 3, CBC w Diff NO MAN DIFF REQ, RBC 4.01 L , MCV 95.7 H, MCH 32.5 H, RDW 13.5, MPV 9.0, Gran % 71.0, Lymphocytes % 15.8 L, Monocytes % 11.5 H, Eosinophils % 1.3, Basophils % 0.4, Absolute Granulocytes 6.3, Absolute Lymphocytes 1.4, Absolute Monocytes 1.0 H, Absolute Eosinophils 0.1, Absolute Basophils 0, PUBS MCHC 34.0 Assessment/Plan Assessment: 76-year-old gentleman with a PMH unknown underwent recent right total hip replacement and found to have difficulty with speaking. Patient has remained afebrile through admission, stable blood pressure, no evidence of tachycardia. Head CT (08/04/16): No acute intracranial pathology. Mild volume loss with small vessel ischemic changes Carotid Doppler: RIGHT: Minimal, nonhemodynamically significant stenosis of the proximal right internal carotid artery corresponding to a 0-49% stenosis by velocity criteria. LEFT: Moderate, hemodynamically significant stenosis of the proximal left internal carotid artery corresponding to a 50-79% stenosis by velocity criteria. Problem list: 1. TIA/CVA 2. Left internal carotid artery stenosis 3. Delirium Plan: 1. TIA/CVA * Based on head CT and carotid findings neurology was consulted. Recommendations at this time are for dual antiplatelet therapy with aspirin 325mg and Plavix 75mg, statin * Echocardiogram pending * 2. Left internal carotid artery stenosis * Patient will likely benefit from outpatient follow-up with vascular surgeon for LICA stenosis 3. Delirium * His symptoms may be secondary to delirium in the setting of recent surgery, Dilaudid for pain management and constipation * Bowel regiment for 1 BM per 24hrs pain management: Adding on lactulose with titration parameters for 1 bowel movement per 24 hours * Discontinuing Dilaudid. Pain management with Percocets * Follow-up urinalysis with culture. Patient has received cefazolin preoperatively possibility for negative culture * Frequent reorientation, ambulation per surgical recommendation 4. Diet * Heart healthy 5. DVT prophylaxis * ALPs 7. CODE STATUS * Full code Problem List: 1. TIA (transient ischemic attack) 2. CVA (cerebral vascular accident) 3. Stenosis of left internal carotid artery 4. Delirium Pain Ratin Pain Location: Right hip Pain Goal: Pain 4 or less Pain Plan: Pain pathway Tomorrow's Labs & Rationales: None required DVT/Prophylaxis: mechanical Consulting Request: Consulting Specialty: Neurology
--- NOTE | 2016-08-05 09:54 | PN- Orthopedic ---
Subjective Subjective: Events noted yesterday. Patient continues to demonstrate difficulty word finding this morning. No pain offered, denies CP/SOB, N/V, F/C. Working with PT. Objective Vital Signs and I&Os Vital Signs Date Time Temp Pulse Resp B/P B/P Pulse O2 O2 Flow FiO2 Mean Ox Delivery Rate 08/05 822 98.2 82 18 118/68 95 Room Air 08/05 0031 97.9 77 20 146/76 95 Nasal 2.0L Cannula 08/05 0000 Nasal 2.0L Cannula 08/04 1603 98.5 75 18 138/60 96 Nasal 2.0L Cannula 08/04 1600 Nasal 2.0L Cannula 08/04 1227 99.8 79 20 134/78 96 Nasal 3.0L Cannula Intake & Output 08/05 1600 08/05 0800 08/05 0000 08/04 1600 08/04 0800 08/04 0000 Intake Total 400 770 705 240 Output Total 300 700 550 200 725 Balance 100 70 155 -200 -485 Intake, IV 400 50 225 Intake, Oral 720 480 240 Output, Urine 300 700 550 200 725 Patient 208 lb Weight Physical Exam: Gen: AAOx3 in NAD Cor: S1+S2+ Lungs: CTA pipe Abd: soft, NT, ND, +BS x4 Ext: no edema or calf tenderness to pipe lower extremities. Palpable DP pulses pipe. Feet warm. Dorsi flexion and plantar flexion intact. Dressing changed to right hip. Incision C/D/I with naman. No erythema or drainage noted. Current Medications: Current Medications Sig/Elizabeth Start time Last Medication Dose Route Stop Time Status Admin Aspirin 325 MG DAILY 08/05 1000 AC PO Aspirin 325 MG BID 08/02 2199 DC 08/04 PO 1238 Atorvastatin Calcium 10 MG 1700 08/04 1700 AC 08/04 PO 1728 Clopidogrel Bisulfate 75 MG DAILY 08/04 1617 AC 08/04 PO 1728 Dextrose/Sodium 1,000 ML .Q10H 08/04 1200 DC 08/04 Chloride IV 1218 Docusate Sodium 100 MG BID 08/02 2199 AC 08/04 PO 2104 Hydromorphone HCl 2 MG Q4P PRN 08/02 1645 AC 08/04 PO 2104 Hydromorphone HCl 4 MG Q4P PRN 08/02 1645 AC 08/05 PO 0502 Ketorolac 15 MG Q8P PRN 08/02 1645 AC Tromethamine IV 08/05 1641 Morphine Sulfate 2 MG Q2P PRN 08/02 1645 AC 08/03 IV 1458 Omeprazole 40 MG DAILY AC 08/03 0700 AC 08/05 PO 0503 Ondansetron HCl 4 MG Q6P PRN 08/02 164 AC IV Polyethylene Glycol 17 GM DAILY 08/03 1000 AC 08/04 PO 1240 Promethazine HCl 12.5 MG Q6P PRN 08/02 164 AC IV 08/09 1314 Sodium Chloride 1,000 ML Q20H 08/04 2200 DC 08/04 IV 08/05 0600 2104 Results Last 48 Hours of Labs: Laboratory Tests 08/05 08/04 0630 0706 Chemistry Sodium (137 - 145 mmol/L) 139 Potassium (3.5 - 5.1 mmol/L) 4.1 Chloride (98 - 107 mmol/L) 100 Carbon Dioxide (22 - 30 mmol/L) 31 H Anion Gap (5 - 16) 9 BUN (9 - 20 mg/dL) 13 Creatinine (0.7 - 1.2 mg/dL) 0.7 Estimated GFR (>60 ml/min) > 60 BUN/Creatinine Ratio (7 - 25 %) 18.6 Lactic Acid (0.7 - 2.1 mmol/L) 1.4 Phosphorus (2.5 - 4.5 mg/dL) 3.4 Magnesium (1.6 - 2.3 mg/dL) 1.9 Triglycerides (<150 mg/dL) 76 Cholesterol (< 200 MG/DL) 161 LDL Cholesterol, Calc (65 - 129 mg/dL) 93 HDL Cholesterol (40 - 60 mg/dL) 53 Cholesterol/HDL Ratio (0.00 - 4.88 %) 3 Hematology CBC w Diff NO MAN DIFF REQ WBC (4.8 - 10.8 /CUMM) 8.9 RBC (4.70 - 6.10 /CUMM) 4.01 L Hgb (14.0 - 18.0 G/DL) 13.1 L Hct (42 - 52 %) 38.4 L MCV (80.0 - 94.0 FL) 95.7 H MCH (27.0 - 31.0 PG) 32.5 H RDW (11.5 - 14.5 %) 13.5 Plt Count (130 - 400 /CUMM) 172 MPV (7.4 - 10.4 FL) 9.0 Gran % (42.2 - 75.2 %) 71.0 Lymphocytes % (20.5 - 51.1 %) 15.8 L Monocytes % (1.7 - 9.3 %) 11.5 H Eosinophils % (0 - 5 %) 1.3 Basophils % (0.0 - 2.0 %) 0.4 Absolute Granulocytes (1.4 - 6.5 /CUMM) 6.3 Absolute Lymphocytes (1.2 - 3.4 /CUMM) 1.4 Absolute Monocytes (0.10 - 0.60 /CUMM) 1.0 H Absolute Eosinophils (0.0 - 0.7 /CUMM) 0.1 Absolute Basophils (0.0 - 0.2 /CUMM) 0 PUBS MCHC (33.0 - 37.0 G/DL) 34.0 08/04 0704 Chemistry Sodium (137 - 145 mmol/L) 137 Potassium (3.5 - 5.1 mmol/L) 4.2 Chloride (98 - 107 mmol/L) 102 Carbon Dioxide (22 - 30 mmol/L) 24 Anion Gap (5 - 16) 11 BUN (9 - 20 mg/dL) 16 Creatinine (0.7 - 1.2 mg/dL) 0.8 Estimated GFR (>60 ml/min) > 60 BUN/Creatinine Ratio (7 - 25 %) 20.0 Magnesium (1.6 - 2.3 mg/dL) 1.8 Troponin I (<0.11 ng/ml) < 0.01 Hematology CBC w Diff NO MAN DIFF REQ WBC (4.8 - 10.8 /CUMM) 8.8 RBC (4.70 - 6.10 /CUMM) 4.07 L Hgb (14.0 - 18.0 G/DL) 13.2 L Hct (42 - 52 %) 38.3 L MCV (80.0 - 94.0 FL) 94.2 H MCH (27.0 - 31.0 PG) 32.5 H RDW (11.5 - 14.5 %) 13.4 Plt Count (130 - 400 /CUMM) 170 MPV (7.4 - 10.4 FL) 8.7 Gran % (42.2 - 75.2 %) 78.4 H Lymphocytes % (20.5 - 51.1 %) 10.7 L Monocytes % (1.7 - 9.3 %) 10.2 H Eosinophils % (0 - 5 %) 0.3 Basophils % (0.0 - 2.0 %) 0.4 Absolute Granulocytes (1.4 - 6.5 /CUMM) 6.9 H Absolute Lymphocytes (1.2 - 3.4 /CUMM) 0.9 L Absolute Monocytes (0.10 - 0.60 /CUMM) 0.9 H Absolute Eosinophils (0.0 - 0.7 /CUMM) 0 Absolute Basophils (0.0 - 0.2 /CUMM) 0 PUBS MCHC (33.0 - 37.0 G/DL) 34.5 Assessment/Plan Assessment/Plan A: POD #3 s/p right total hip replacement with hospital course complicated by TIA now on Aspirin/Plavix/statin therapy. AVSS. Plan: Echo ordered Carotid ultrasound results reviewed. Await transfer to medical service as no further orthopedic intervention warranted. Continue Aspirin 325 mg daily Plavix 75 mg daily. PT/OT to continue. Prebooked at [facility] upon discharge. Core Measures/Miscellaneous Venous Thromboembolism VTE Risk Factors: Age > 40, Surgery VTE Contraindications: No Contraindications VTE Diagnosis: No VTE Type: NONE VTE Confirmed by (Test): NONE Beta Bharathi Is Beta Bharathi a Home Med? No Antibiotics Is Patient on Antibiotics? No
--- NOTE | 2016-08-05 11:38 | PN- Neurology ---
Subjective Subjective: Still has mild language difficulty according to his significant other. The patient minimizes the problem. Review of Systems: Denies headache, or numbness of either side, palpitations or chest pain. No prior cardiac or neurologic history. Objective Vital Signs and I&Os Vital Signs Date Time Temp Pulse Resp B/P B/P Pulse O2 O2 Flow FiO2 Mean Ox Delivery Rate 08/05 0823 98.2 82 18 118/68 95 Room Air 08/05 0031 97.9 77 20 146/76 95 Nasal 2.0L Cannula 08/05 0000 Nasal 2.0L Cannula 08/04 1603 98.5 75 18 138/60 96 Nasal 2.0L Cannula 08/04 1600 Nasal 2.0L Cannula 08/04 1227 99.8 79 20 134/78 96 Nasal 3.0L Cannula Intake & Output 08/05 1600 08/05 0800 08/05 0000 08/04 1600 08/04 0800 08/04 0000 Intake Total 400 770 705 240 Output Total 300 700 550 200 725 Balance 100 70 155 -200 -485 Intake, IV 400 50 225 Intake, Oral 720 480 240 Output, Urine 300 700 550 200 725 Patient 208 lb Weight Physical Exam: Alert. No dysarthria. Language is fairly intact but sentences trail off unfinished. No dysnomia for common objects. Follows commands without difficulty. Eye movements full visual gruber full no facial asymmetry. 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 No drift. Physical Exam General Appearance: sedated Current Medications: Current Medications Sig/Elizabeth Start time Last Medication Dose Route Stop Time Status Admin Aspirin 325 MG DAILY 08/05 1000 AC 08/05 PO 1156 Aspirin 325 MG BID 08/02 2199 DC 08/04 PO 1238 Atorvastatin Calcium 20 MG 1700 08/05 1700 AC PO Atorvastatin Calcium 10 MG 1700 08/04 1700 DC 08/04 PO 1728 Clopidogrel Bisulfate 75 MG DAILY 08/04 1617 AC 08/05 PO 1156 Dextrose/Sodium 1,000 ML .Q10H 08/04 1200 DC 08/04 Chloride IV 1218 Docusate Sodium 100 MG BID 08/02 2200 AC 08/05 PO 1156 Hydromorphone HCl 2 MG Q4P PRN 08/02 1645 AC 08/04 PO 2104 Hydromorphone HCl 4 MG Q4P PRN 08/02 1645 AC 08/05 PO 0502 Ketorolac 15 MG Q8P PRN 08/02 1645 DC Tromethamine IV 08/05 1641 Morphine Sulfate 2 MG Q2P PRN 08/02 1645 AC 08/03 IV 1458 Omeprazole 40 MG DAILY AC 08/03 0700 AC 08/05 PO 0503 Ondansetron HCl 4 MG Q6P PRN 08/02 1645 AC IV Patient Medication 1 UNIT ONE NR 08/05 1100 DC Teaching ED 08/05 1130 Polyethylene Glycol 17 GM DAILY 08/03 1000 AC 08/05 PO 1156 Promethazine HCl 12.5 MG Q6P PRN 08/02 1645 AC IV 08/09 1314 Sodium Chloride 1,000 ML Q20H 08/04 2200 DC 08/04 IV 08/05 0600 2104 Results Last 24 Hours of Lab Results: Laboratory Tests 08/05 0630 Chemistry Sodium (137 - 145 mmol/L) 139 Potassium (3.5 - 5.1 mmol/L) 4.1 Chloride (98 - 107 mmol/L) 100 Carbon Dioxide (22 - 30 mmol/L) 31 H Anion Gap (5 - 16) 9 BUN (9 - 20 mg/dL) 13 Creatinine (0.7 - 1.2 mg/dL) 0.7 Estimated GFR (>60 ml/min) > 60 BUN/Creatinine Ratio (7 - 25 %) 18.6 Phosphorus (2.5 - 4.5 mg/dL) 3.4 Magnesium (1.6 - 2.3 mg/dL) 1.9 Triglycerides (<150 mg/dL) 76 Cholesterol (< 200 MG/DL) 161 LDL Cholesterol, Calc (65 - 129 mg/dL) 93 HDL Cholesterol (40 - 60 mg/dL) 53 Cholesterol/HDL Ratio (0.00 - 4.88 %) 3 Hematology CBC w Diff NO MAN DIFF REQ WBC (4.8 - 10.8 /CUMM) 8.9 RBC (4.70 - 6.10 /CUMM) 4.01 L Hgb (14.0 - 18.0 G/DL) 13.1 L Hct (42 - 52 %) 38.4 L MCV (80.0 - 94.0 FL) 95.7 H MCH (27.0 - 31.0 PG) 32.5 H RDW (11.5 - 14.5 %) 13.5 Plt Count (130 - 400 /CUMM) 172 MPV (7.4 - 10.4 FL) 9.0 Gran % (42.2 - 75.2 %) 71.0 Lymphocytes % (20.5 - 51.1 %) 15.8 L Monocytes % (1.7 - 9.3 %) 11.5 H Eosinophils % (0 - 5 %) 1.3 Basophils % (0.0 - 2.0 %) 0.4 Absolute Granulocytes (1.4 - 6.5 /CUMM) 6.3 Absolute Lymphocytes (1.2 - 3.4 /CUMM) 1.4 Absolute Monocytes (0.10 - 0.60 /CUMM) 1.0 H Absolute Eosinophils (0.0 - 0.7 /CUMM) 0.1 Absolute Basophils (0.0 - 0.2 /CUMM) 0 PUBS MCHC (33.0 - 37.0 G/DL) 34.0 Recent Imaging Studies: Carotid Dopplers: 1. RIGHT: Minimal, nonhemodynamically significant stenosis of the proximal right internal carotid artery corresponding to a 0-49% stenosis by velocity criteria. 2. LEFT: Moderate, hemodynamically significant stenosis of the proximal left internal carotid artery corresponding to a 50-79% stenosis by velocity criteria. Assessment/Plan Assessment: Minor stroke, left MCA with mild language impairment. Underlying left carotid stenosis previously asymptomatic. Event occurred lowing surgery suggesting a possible mild hypercoagulable state. No dysrhythmia on telemetry and no cardiac symptoms Plan: Aggressive medical therapy initially: Dual antiplatelet treatment and statin. Echocardiogram. If echo reveals no unexpected problems the patient could be discharged to [facility] for rehabilitation as planned. He should have a formal speech therapy evaluation there. Neurologic follow-up after discharge would best be arranged [place] or out on the [place] where he resides.
[2016-08-05 15:30] VITALS: BP 142/64
[2016-08-06 00:43] VITALS: BP 118/58
[2016-08-06 08:06] VITALS: BP 128/78
--- NOTE | 2016-08-06 09:07 | PN- Housestaff ---
Subjective Follow-up For: TIA Status post right hip replacement Tele-Events Since Last Visit: NSR 74-86bpm Subjective: I saw and examined the patient today morning He is doing much better, sitting on the chair. Reports working well with physical therapy. Reports slight pain in his right foot along with weakness but getting better. No other concerns - chest pain, shortness of breath/dizziness with walking. On room air Littile delirious yesterday evening, Discontinued Dilaudid. Didnt have a bowel movement for the past 2 days, provided with dulcolax suppository. Review of Systems Constitutional: Reports: see HPI. Comments: ROS negative except the above Objective Last 24 Hrs of Vital Signs/I&O Vital Signs Date Time Temp Pulse Resp B/P B/P Pulse O2 O2 Flow FiO2 Mean Ox Delivery Rate 08/06 0806 98.3 82 18 128/78 94 Room Air 08/06 0043 98.9 87 18 118/58 92 Room Air 08/05 1530 99.1 93 18 142/64 94 Room Air Intake & Output 08/06 1600 08/06 0800 08/06 0000 Intake Total 120 420 Output Total 700 900 Balance -580 -480 Intake, IV 20 Intake, Oral 120 400 Number 0 Bowel Movements Output, Urine 700 900 Physical Exam General Appearance: Alert, Oriented X3, Cooperative, No Acute Distress Skin: No Rashes, No Breakdown Skin Temp/Moisture Exam: Warm/Dry HEENT: Atraumatic, PERRLA Neck: Supple Cardiovascular: Normal S1, Normal S2 Lungs: Clear to Auscultation, Normal Air Movement Abdomen: Normal Bowel Sounds, Soft, No Tenderness Neurological: Normal Speech, Normal Tone, Sensation Intact, decreased strength on right leg, swelling at the righ great toe, tender to palpation Extremities: No Clubbing, No Cyanosis, scant edema present Vascular: Normal Pulses, Pulses Symmetrical Lines/Diet/Fluids Lines: peripheral lines Assessment/Plan Assessment: 76-year-old gentleman with a PMH unknown underwent recent right total hip replacement and found to have difficulty with speaking. Patient has remained afebrile through admission, stable blood pressure, no evidence of tachycardia. Head CT (08/04/16): No acute intracranial pathology. Mild volume loss with small vessel ischemic changes Carotid Doppler: RIGHT: Minimal, nonhemodynamically significant stenosis of the proximal right internal carotid artery corresponding to a 0-49% stenosis by velocity criteria. LEFT: Moderate, hemodynamically significant stenosis of the proximal left internal carotid artery corresponding to a 50-79% stenosis by velocity criteria. Problem list: 1. TIA/CVA 2. Left internal carotid artery stenosis 3. Delirium Plan: 1. TIA/CVA * Based on head CT and carotid findings neurology was consulted. Recommendations at this time are for dual antiplatelet therapy with aspirin 325mg and Plavix 75mg, statin * Echocardiogram is normal. 2. Left internal carotid artery stenosis * Patient will likely benefit from outpatient follow-up with vascular surgeon for LICA stenosis 3. Delirium * His symptoms may be secondary to delirium in the setting of recent surgery, Dilaudid for pain management and constipation * Bowel regiment for 1 BM per 24hrs pain management: Adding on lactulose with titration parameters for 1 bowel movement per 24 hours * Discontinuing Dilaudid. Pain management with Percocets * Follow-up urinalysis with culture. Patient has received cefazolin preoperatively possibility for negative culture * Frequent reorientation, ambulation per surgical recommendation 4. Diet * Heart healthy 5. DVT prophylaxis * ALPs 7. CODE STATUS * Full code Problem List: 1. Unilateral primary osteoarthritis, right hip 2. TIA (transient ischemic attack) 3. Stenosis of left internal carotid artery 4. Delirium Pain Ratin Pain Location: right foot and hip Pain Goal: Pain 4 or less Pain Plan: tylenol prn Tomorrow's Labs & Rationales: none Consulting Request: Consulting Specialty: Neurology
[2016-08-06] MEDS ORDERED: ATORVASTATIN CA20 M1 PO (12:05)
[2016-08-06] MEDS ORDERED: PLAVIX75 M1 PO (12:05)
[2016-08-06] MEDS ORDERED: ASPIRIN EC325 M2 PO (12:08)
--- NOTE | 2016-08-06 12:48 | ECHOCARDIOGRAM REPORT ---
HAMLET LARA Age: 76 : 1940 Gender: M Exam Date: 08/06/2016 10:48 Exam Location: 1 [place] Ht (in): 71 Wt (lb): 207 BSA: 2.19 BP: 118 / 58 Ordering Physician: ANGELES MCKEON PA Referring Physician: ANGELES MCKEON PA Technologist: Johana Mills RDCS Room Number: 175 Indications: TIA Rhythm: Technical Quality: good FINDINGS Left Ventricle Normal LV chamber size with mild concentric LVH area in the LVEF is 60% there are no focal wall motion abnormalities Right Ventricle Normal RV chamber size and function Right Atrium Normal appearing right atrium Left Atrium Normal appearing left atrium Mitral Valve Normal-appearing mitral valvular leaflet structure and function. There is minimal annular and leaflet calcification. Aortic Valve Mildly thickened and calcified aortic valve leaflets with normal leaflet opening. Tricuspid Valve Normal appearing tricuspid valvular leaflet structure and function. There is trace to mild regurgitation noted. Pulmonic Valve Grossly normal appearing pulmonic valvular leaflets Pericardium There is no pericardial effusion Great Vessels Normal-appearing great vessels CONCLUSIONS Normal LV chamber size with mild concentric LVH area in the LVEF is 60% there are no focal wall motion abnormalities. Normal-appearing mitral valvular leaflet structure and function. There is minimal annular and leaflet calcification. Mildly thickened and calcified aortic valve leaflets with normal leaflet opening. Normal appearing tricuspid valvular leaflet structure and function. There is trace to mild regurgitation noted. There is no clear evidence for ASD or PFO by color flow Doppler; however, one cannot be excluded by this study. There is no clear evidence for cardiac source of embolism; however, one cannot be adequately excluded by this study. Manpreet Larson M.D. (Electronically Signed) Final Date: 06 August 2016 12:47 MEASUREMENTS (Male / Female) Normal Values 2D ECHO LV Diastolic Diameter PLAX 5.1 cm 4.2 - 5.9 / 3.9 - 5.3 cm LV Systolic Diameter PLAX 3.0 cm 2.1 - 4.0 cm LV Fractional Shortening PLAX 41.2 % 25 - 46 % LV Ejection Fraction 2D Teich 71.7 % IVS Diastolic Thickness 1.2 cm LVPW Diastolic Thickness 1.2 cm LV Relative Wall Thickness 0.5 RV Internal Dim ED PLAX 3.1 cm 1.9 - 3.8 cm LVOT Diameter 2.3 cm Aortic Root Diameter 3.7 cm LA Systolic Diameter LX 3.6 cm 3.0 - 4.0 / 2.7 - 3.8 cm LA Volume 26.0 cm 18 - 58 / 22 - 52 cm Ascending Aorta Diameter 3.1 cm DOPPLER AV Peak Velocity 124.0 cm/s AV Peak Gradient 6.2 mmHg AV Mean Velocity 89.7 cm/s AV Mean Gradient 4.0 mmHg AV Velocity Time Integral 22.1 cm LVOT Peak Velocity 99.3 cm/s LVOT Peak Gradient 3.9 mmHg LVOT Mean Velocity 75.2 cm/s LVOT Mean Gradient 3.0 mmHg LVOT Velocity Time Integral 18.5 cm LVOT Stroke Volume 76.9 cm AV Area Cont Eq vti 3.5 cm AV Area Cont Eq pk 3.3 cm MV Peak Velocity 84.3 cm/s MV Peak Gradient 2.8 mmHg MV Mean Velocity 45.7 cm/s MV Mean Gradient 1.0 mmHg Mitral E Point Velocity 59.7 cm/s Mitral A Point Velocity 86.4 cm/s Mitral E to A Ratio 0.7 MV PHT Velocity 56.5 cm/s MV Deceleration [place] 137.0 cm/s MV Pressure Half Time 123.7 ms MV Area PHT 1.8 cm MV Deceleration Time 327.0 ms TR Peak Velocity 239.0 cm/s TR Peak Gradient 22.8 mmHg Right Atrial Pressure 5.0 mmHg Pulmonary Artery Systolic Pressu 27.8 mmHg Right Ventricular Systolic Press 27.8 mmHg PV Peak Velocity 114.0 cm/s PV Peak Gradient 5.2 mmHg PV Mean Velocity 77.0 cm/s PV Mean Gradient 3.0 mmHg PV Velocity Time Integral 18.6 cm LV E' Lateral Velocity 9.9 cm/s Mitral E to LV E' Lateral Ratio 6.0 LV E' Septal Velocity 9.2 cm/s Mitral E to LV E' Septal Ratio 6.5
--- NOTE | 2016-08-06 13:33 | Discharge Summary ---
Visit Information Visit Dates Admission Date: 08/02/16 Discharge Date: 08/06/2016 Hospital Course Course Attending Physician: SHASHI MORFIN,ONEIL Jose Primary Care Physician: TED ORO MD Consulting Request: Consulting Specialty: Neurology Hospital Course: 76-year-old gentleman with a no significant PMH underwent recent right total hip replacement and found to have difficulty with speaking. Patient has remained afebrile through admission, stable blood pressure, no evidence of tachycardia. Head CT (08/04/16): No acute intracranial pathology. Mild volume loss with small vessel ischemic changes Carotid Doppler: RIGHT: Minimal, nonhemodynamically significant stenosis of the proximal right internal carotid artery corresponding to a 0-49% stenosis by velocity criteria. LEFT: Moderate, hemodynamically significant stenosis of the proximal left internal carotid artery corresponding to a 50-79% stenosis by velocity criteria. Patient was transferred to telemetry floor and treated for these medical conditions: Plan: 1. TIA/CVA Based on head CT and carotid findings neurology recommended dual antiplatelet therapy aspirin 325 and Plavix 75 daily. No significant arrhythmias were observed during the telemetry monitoring. Echocardiogram did not show any thrombus in the heart. Left internal carotid artery stenosis was seen in Doppler study. Patient should follow up with vascular surgeon for further management of the lesion. 2. HIP SURGERY Patient was discharged on pain medications and bowel regimen. Patient should follow-up with orthopedic surgeon after discharge Allergies: Coded Allergies: Penicillins (CHILDHOOD 07/25/16) Pertinent Lab Results: PATIENT: HAMLET LARA PRESENT AGE: 76 PATIENT ACCOUNT NO: [id number] : 42 LOCATION: [facility] ORDERING PHYSICIAN: DUSTIN VERA MD SERVICE DATE: 08/02/163 EXAM TYPE: RAD - XRY-HIP 2-3 VIEWS, RIGHT EXAMINATION: XR HIP, RIGHT CLINICAL INFORMATION: Status post right hip replacement COMPARISON: None TECHNIQUE: AP and crosstable lateral views of the right hip. FINDINGS: The right hip arthroplasty components appear well-seated in near-anatomic alignment. There is some air in the soft tissues. IMPRESSION: Intact right total hip arthroplasty. Expected postoperative changes. DICTATED BY: NATTY HERNANDEZ MD DATE/TIME DICTATED:08/02/161439 ROUTE SALES SPECIALIST:CATHY DATE/TIME TRANSCRIBED:08/02/161439 CONFIDENTIAL, DO NOT COPY WITHOUT APPROPRIATE AUTHORIZATION. <Electronically signed in Other Vendor System> SIGNED BY: NATTY HERNANDEZ MD 1445 PATIENT: HAMLET LARA PRESENT AGE: 76 PATIENT ACCOUNT NO: [id number] : 42 LOCATION: 1NO ORDERING PHYSICIAN: ANGELES VEGA SERVICE DATE: 08/04/16 EXAM TYPE: CAT - CT HEAD WO IV CONTRAST EXAMINATION: CT HEAD WITHOUT CONTRAST CLINICAL INFORMATION: Acute mental status changes. COMPARISON: None. TECHNIQUE: Contiguous axial imaging was performed from the skull base to vertex without intravenous contrast. DLP: 834 mGy-cm. FINDINGS: There is no evidence of acute intracranial hemorrhage or territorial infarction. No abnormal mass effect or midline shift is seen. Evans to white matter differentiation is well preserved. No extra-axial fluid collections are identified. No hydrocephalus. Proportional prominence of the ventricles and sulcal spaces is consistent with mild volume loss. Patchy periventricular and deep white matter hypoattenuation is consistent with mild small vessel ischemic changes. The osseous structures and soft tissues are normal. The mastoid air cells and visualized portions of the paranasal sinuses are well aerated. IMPRESSION: No acute intracranial pathology. Mild volume loss with small vessel ischemic changes. DICTATED BY: CHARLY VAZQUEZ MD DATE/TIME DICTATED:08/04/16731 ROUTE SALES SPECIALIST:CATHY DATE/TIME TRANSCRIBED:08/04/16731 CONFIDENTIAL, DO NOT COPY WITHOUT APPROPRIATE AUTHORIZATION. <Electronically signed in Other Vendor System> SIGNED BY: CHARLY VAZQUEZ MD 08/04 0737 ======= PATIENT: HAMLET LARA PRESENT AGE: 76 PATIENT ACCOUNT NO: [id number] : 42 LOCATION: 1NO ORDERING PHYSICIAN: ANGELES VEGA SERVICE DATE: 08/04/16 EXAM TYPE: US - [id number] DOPPLER EXAMINATION: DUPLEX BILATERAL CAROTID ULTRASOUND CLINICAL INFORMATION: Acute mental status change. COMPARISON: None. TECHNIQUE: \H\B\N\ilateral carotid US was performed using real-time ultrasound and Doppler techniques (integrating B-mode 2D vascular images, Doppler spectral analysis and color flow Doppler imaging). These techniques were utilized to interrogate the extracranial carotid and vertebral arteries bilaterally. The degree of stenosis is based off criteria similar to NASCET. FINDINGS: Right side: 1. Small amount of hyperechoic plaque is seen in the ECA/ICA region. 2. The common carotid artery velocity is 119 cm/s. 3. The internal carotid artery velocities are 103 cm/s systolic and 41 cm/s diastolic. 4. The external carotid artery velocity is 163 cm/s. Left side: 1. Small amount of hyperechoic plaque is seen in the ECA/ICA region. 2. The common carotid artery velocity is 133 cm/s. 3. The internal carotid artery velocities are 135 cm/s systolic and 59 cm/s diastolic. 4. The external carotid artery velocity is 166 cm/s. ADDITIONAL FINDINGS: 1. The vertebral arteries show antegrade flow. IMPRESSION: 1. RIGHT: Minimal, nonhemodynamically significant stenosis of the proximal right internal carotid artery corresponding to a 0-49% stenosis by velocity criteria. 2. LEFT: Moderate, hemodynamically significant stenosis of the proximal left internal carotid artery corresponding to a 50-79% stenosis by velocity criteria. DICTATED BY: AJAY FIELDS MD DATE/TIME DICTATED:08/04/161652 ROUTE SALES SPECIALIST:CATHY DATE/TIME TRANSCRIBED:08/04/161652 CONFIDENTIAL, DO NOT COPY WITHOUT APPROPRIATE AUTHORIZATION. <Electronically signed in Other Vendor System> SIGNED BY: AJAY FIELDS MD 08/04/16 1700 PATIENT: HAMLET LARA PRESENT AGE: 76 PATIENT ACCOUNT NO: [id number] : 42 LOCATION: 1NO ORDERING PHYSICIAN: ANGELES VEGA SERVICE DATE: 08/06/16- EXAM TYPE: CARD - ECHOCARDIOGRAM HAMLET LARA Age: 76 : 1940 Gender: M Exam Date: 08/06/2016 10:48 Exam Location: 1 [address] Ht (in): 71 Wt (lb): 207 BSA: 2.19 BP: 118 / 58 Ordering Physician: ANGELES MCKEON PA Referring Physician: ANGELES MCKEON PA Technologist: Johana Mills RDCS Room Number: 175 Indications: TIA Rhythm: Technical Quality: good FINDINGS Left Ventricle Normal LV chamber size with mild concentric LVH area in the LVEF is 60% there are no focal wall motion abnormalities Right Ventricle Normal RV chamber size and function Right Atrium Normal appearing right atrium Left Atrium Normal appearing left atrium Mitral Valve Normal-appearing mitral valvular leaflet structure and function. There is minimal annular and leaflet calcification. Aortic Valve Mildly thickened and calcified aortic valve leaflets with normal leaflet opening. Tricuspid Valve Normal appearing tricuspid valvular leaflet structure and function. There is trace to mild regurgitation noted. Pulmonic Valve Grossly normal appearing pulmonic valvular leaflets Pericardium There is no pericardial effusion Great Vessels Normal-appearing great vessels CONCLUSIONS Normal LV chamber size with mild concentric LVH area in the LVEF is 60% there are no focal wall motion abnormalities. Normal-appearing mitral valvular leaflet structure and function. There is minimal annular and leaflet calcification. Mildly thickened and calcified aortic valve leaflets with normal leaflet opening. Normal appearing tricuspid valvular leaflet structure and function. There is trace to mild regurgitation noted. There is no clear evidence for ASD or PFO by color flow Doppler; however, one cannot be excluded by this study. There is no clear evidence for cardiac source of embolism; however, one cannot be adequately excluded by this study. Manpreet Larson M.D. (Electronically Signed) Final Date: 06 August 2016 12:47 MEASUREMENTS (Male / Female) Normal Values 2D ECHO LV Diastolic Diameter PLAX 5.1 cm 4.2 - 5.9 / 3.9 - 5.3 cm LV Systolic Diameter PLAX 3.0 cm 2.1 - 4.0 cm LV Fractional Shortening PLAX 41.2 % 25 - 46 % LV Ejection Fraction 2D Teich 71.7 % IVS Diastolic Thickness 1.2 cm LVPW Diastolic Thickness 1.2 cm LV Relative Wall Thickness 0.5 RV Internal Dim ED PLAX 3.1 cm 1.9 - 3.8 cm LVOT Diameter 2.3 cm Aortic Root Diameter 3.7 cm LA Systolic Diameter LX 3.6 cm 3.0 - 4.0 / 2.7 - 3.8 cm LA Volume 26.0 cm 18 - 58 / 22 - 52 cm Ascending Aorta Diameter 3.1 cm DOPPLER AV Peak Velocity 124.0 cm/s AV Peak Gradient 6.2 mmHg AV Mean Velocity 89.7 cm/s AV Mean Gradient 4.0 mmHg AV Velocity Time Integral 22.1 cm LVOT Peak Velocity 99.3 cm/s LVOT Peak Gradient 3.9 mmHg LVOT Mean Velocity 75.2 cm/s LVOT Mean Gradient 3.0 mmHg LVOT Velocity Time Integral 18.5 cm LVOT Stroke Volume 76.9 cm AV Area Cont Eq vti 3.5 cm AV Area Cont Eq pk 3.3 cm MV Peak Velocity 84.3 cm/s MV Peak Gradient 2.8 mmHg MV Mean Velocity 45.7 cm/s MV Mean Gradient 1.0 mmHg Mitral E Point Velocity 59.7 cm/s Mitral A Point Velocity 86.4 cm/s Mitral E to A Ratio 0.7 MV PHT Velocity 56.5 cm/s MV Deceleration [place] 137.0 cm/s MV Pressure Half Time 123.7 ms MV Area PHT 1.8 cm MV Deceleration Time 327.0 ms TR Peak Velocity 239.0 cm/s TR Peak Gradient 22.8 mmHg Right Atrial Pressure 5.0 mmHg Pulmonary Artery Systolic Pressu 27.8 mmHg Right Ventricular Systolic Press 27.8 mmHg PV Peak Velocity 114.0 cm/s PV Peak Gradient 5.2 mmHg PV Mean Velocity 77.0 cm/s PV Mean Gradient 3.0 mmHg PV Velocity Time Integral 18.6 cm LV E' Lateral Velocity 9.9 cm/s Mitral E to LV E' Lateral Ratio 6.0 LV E' Septal Velocity 9.2 cm/s Mitral E to LV E' Septal Ratio 6.5 DICTATED BY: MANPREET LARSON MD DATE/TIME DICTATED:08/06/161247 ROUTE SALES SPECIALIST:CATHY DATE/TIME TRANSCRIBED:08/06/161247 CONFIDENTIAL, DO NOT COPY WITHOUT APPROPRIATE AUTHORIZATION. <Electronically signed in Other Vendor System> SIGNED BY: MANPREET LARSON MD 08/06/161247 Disposition Summary Disposition Principal Diagnosis: Hip surgery Minor CVA Additional Diagnosis: GERD Discharge Disposition: SNF Discharge Instructions General Discharge Information Code Status: Full Code Patient's Diet: Heart healthy Patient's Activity: WEIGHT BEAR TOLERATED ON RIGHT LEG Follow-Up Instructions/Appts: ASPIRIN: YOU WILL BE REQUIRED TO TAKE ASPIRIN TWICE DAILY FOR A MINIMUM OF 3 WEEKS. THIS IS VERY IMPORTANT IT WILL HELP PROTECT YOU FROM DEVELOPING A BLOOD CLOT. PLEASE TAKE WITH FOOD TO PROTECT YOUR STOMACH LINING. YOU HAVE ALSO BEEN GIVEN PRILOSEC WHICH IS A MEDICATION THAT WILL ALSO HELP TO PROTECT YOUR STOMACH. CONSTIPATION: CONSTIPATION IS COMMON WITH THE USE OF PAIN MEDICATIONS. DR. VERA HAS GIVEN YOU COLACE AND MIRALAX TO HELP WITH YOUR BOWEL MOVEMENTS. PLEASE TAKE THESE MEDICATIONS DIRECTED. Please follow up with Dr. Oro as an outpatient Please follow up with as an outpatient Please follow up with as an outpatient follow up with vascular surgery for your carotid stenosis in an outpatient setting Medications at Discharge Discharge Medications: Start taking the following new medications: Aspirin (Ecotrin*) 325 MG TABLET.DR 1 Tablet ORAL DAILY Qty = 60 No Refills Comments: Last Taken: 08/06/16 Time: 0840 Clopidogrel Bisulfate (Plavix) 75 MG TABLET 75 Milligram ORAL DAILY Qty = 30 No Refills Comments: Last Taken: 08/06/16 Time: 0840 Atorvastatin Calcium (Atorvastatin Calcium) 20 MG TABLET 20 Milligram ORAL 5 PM Qty = 30 No Refills Comments: Last Taken: 08/05/16 Time: 1610 Docusate Sodium (Colace) 100 MG CAPSULE 1 Capsule ORAL TWICE DAILY Qty = 14 No Refills Instructions: DISCONTINUE USE IF YOU DEVELOP LOOSE STOOL OR DIARRHEA Comments: Last Taken: 08/06/16 Time: 0840 Hydromorphone HCl (Dilaudid) 2 MG TABLET 1-2 Tablet ORAL EVERY 4-6 HOURS as needed for PAIN Qty = 36 No Refills Comments: Last Taken: 07/16/16 Time: 0500 Polyethylene Glycol 3350 (Miralax) 17 GRAM POWD.PACK 1 Packet ORAL DAILY Qty = 7 No Refills Instructions: dissolve in water, DISCONTINUE USE IF YOU DEVELOP LOOSE STOOL OR DIARRHEA Comments: Last Taken: 08/06/16 Time: 0840 Morphine Sulfate (Ms Contin) 15 MG TABLET.ER 1 Tablet ORAL TWICE DAILY Qty = 6 No Refills Comments: Last Taken: NOT GIVEN IN HOSPITAL Time: Omeprazole Magnesium (Prilosec Otc) 20 MG TABLET.DR 1 Tablet ORAL DAILY Qty = 30 No Refills Comments: Last Taken: 08/06/16 Time: 0630 Copies To: MAXX MORFIN,EDMUND Sanders; MIKE MORFIN,TED; JODY MORFIN,DUSTIN Attending MD Review Statement Documenting Attending: SHASHI MORFIN,ONEIL Jose Other Findings: please see my separate attending note for more details
--- NOTE | 2016-08-06 14:17 | PN- Neurology ---
Subjective Subjective: Improved, per pt, friend Silvina, and staff Review of Systems: no complaints Objective Vital Signs and I&Os Vital Signs Date Time Temp Pulse Resp B/P B/P Pulse O2 O2 Flow FiO2 Mean Ox Delivery Rate 08/06 0806 98.3 82 18 128/78 94 Room Air 08/06 0800 94 Room Air 08/06 0043 98.9 87 18 118/58 92 Room Air 08/05 1530 99.1 93 18 142/64 94 Room Air Intake & Output 08/06 1600 08/06 0800 08/06 0000 08/05 1600 08/05 0800 08/05 0000 Intake Total 760 120 420 400 770 Output Total 400 700 900 300 700 Balance 360 -580 -480 100 70 Intake, IV 20 400 50 Intake, Oral 760 120 400 720 Number 0 Bowel Movements Output, Urine 400 700 900 300 700 Physical Exam: Alert, speech clear, language seems normal architectural technician strong, no drift Current Medications: Current Medications Sig/Elizabeth Start time Last Medication Dose Route Stop Time Status Admin Acetaminophen 650 MG ONCE ONE 08/06 1200 DC 08/06 PO 08/06 1201 1201 Aspirin 325 MG DAILY 08/05 1000 AC 08/06 PO 0840 Atorvastatin Calcium 20 MG 1700 08/05 1700 AC 08/05 PO 1610 Bisacodyl 10 MG ONCE ONE 08/06 1000 DC ME 08/06 1001 Clopidogrel Bisulfate 75 MG DAILY 08/04 1617 AC 08/06 PO 0841 Docusate Sodium 100 MG BID 08/02 2200 AC 08/06 PO 0840 Hydromorphone HCl 2 MG Q4P PRN 08/02 1645 DC 08/04 PO 2104 Hydromorphone HCl 4 MG Q4P PRN 08/02 1645 DC 08/05 PO 0502 Lactulose 20 GM BID 08/05 1715 AC 08/06 PO 0841 Magnesium Chloride 64 MG ONCE ONE 08/06 1115 DC PO 08/06 1116 Morphine Sulfate 2 MG Q2P PRN 08/02 1645 DC 08/03 IV 1458 Omeprazole 40 MG DAILY AC 08/03 0700 AC 08/06 PO 0631 Ondansetron HCl 4 MG Q6P PRN 08/02 1645 AC IV Oxycodone/ 1 TAB Q6P PRN 08/05 1730 AC 08/06 Acetaminophen PO 0421 Oxycodone/ 2 TAB Q6P PRN 08/05 1730 AC Acetaminophen PO Polyethylene Glycol 17 GM DAILY 08/03 1000 AC 08/06 PO 0840 Promethazine HCl 12.5 MG Q6P PRN 08/02 1645 AC IV 08/09 1314 Senna 187 MG AT BEDTIME 08/05 1700 AC 08/05 PO 2008 Results Last 24 Hours of Lab Results: Laboratory Tests 08/05 1600 Urines Urinalysis LIGHT H Urine Color (YEL,AMB,STR) YEL Urine Clarity (CLEAR) CLEAR Urine pH (5.0 - 8.0) 7.0 Ur Specific [place] (1.001 - 1.035) 1.015 Urine Protein (NEG,<30 MG/DL) TRACE H Urine Ketones (NEG) NEG Urine Nitrite (NEG) NEG Urine Bilirubin (NEG) NEG Urine Urobilinogen (0.1 - 1.0 EU/dl) 1.0 Ur Leukocyte Esterase (NEG) NEG Ur Microscopic SEDIMENT EXAMINED Ur Epithelial Cells (NONE,FEW) RARE Urine Hemoglobin (NEG) NEG Urine Glucose (N MG/DL) NEG Recent Imaging Studies: ECHO: CONCLUSIONS Normal LV chamber size with mild concentric LVH area in the LVEF is 60% there are no focal wall motion abnormalities. Normal-appearing mitral valvular leaflet structure and function. There is minimal annular and leaflet calcification. Mildly thickened and calcified aortic valve leaflets with normal leaflet opening. Normal appearing tricuspid valvular leaflet structure and function. There is trace to mild regurgitation noted. There is no clear evidence for ASD or PFO by color flow Doppler; however, one cannot be excluded by this study. There is no clear evidence for cardiac source of embolism; however, one cannot be adequately excluded by this study. Assessment/Plan Assessment: Minor CVA, language affected, clearing or cleared Left internal carotid stenosis on aggressive medical therapy BP controlled THR right Plan: OK neurologically for discharge to Rehab and out-pt f/u
[2016-08-06 14:53] VITALS: BP 128/78
--- NOTE | 2016-08-06 15:52 | PN- Att Addend ---
Attending MD Review Statement Attending Statement Attending MD Statement: examined this patient, discuss w/resident/PA/BENEFITS REPRESENTATIVE, agreed w/resident/PA/BENEFITS REPRESENTATIVE, discussed with family, reviewed EMR data (avail), discussed w/ nursing, discussed w/case mgmt Attending Assessment/Plan: Laboratory Tests 08/05/16 1600: Urinalysis LIGHT H, Urine Color YEL, Urine Clarity CLEAR, Urine pH 7.0, Ur Specific [place] 1.015, Urine Protein TRACE H, Urine Ketones NEG, Urine Nitrite NEG, Urine Bilirubin NEG, Urine Urobilinogen 1.0, Ur Leukocyte Esterase NEG, Ur Microscopic SEDIMENT EXAMINED, Ur Epithelial Cells RARE, Urine Hemoglobin NEG, Urine Glucose NEG Vital Signs Date Time Temp Pulse Resp B/P B/P Pulse O2 O2 Flow FiO2 Mean Ox Delivery Rate 08/06 1453 98.3 82 18 128/78 08/06 0806 98.3 82 18 128/78 94 Room Air 08/06 0800 94 Room Air 08/06 0043 98.9 87 18 118/58 92 Room Air Patient seen and examined at bedside. Discussed with patient as well as patient 's significant other the care plan. Echocardiogram was done today and was noncontributory. Patient is being discharged to subacute rehabilitation today. Please see discharge summary for more details.
== END 2016-08-06 15:55 | DRG 470 ==
LOC: 2NB 01:26 → 1NO 01:26 → SDA 01:26 → ENRESERV 14:09 → 2NB 16:00 → 1NO 08-04 07:30 → ENPENDDIS 08-06 14:37 → 1NO 08-06 15:55
PROVIDERS: Internal Medicine Infectious Disease; Nurse Practitioner; Physician Assistant; ADMIT Orthopaedic Surgery
PROC: 0SR90JZ Replacement of Right Hip Joint with Synthetic Substitute, Open Approach (ICD-10-PCS; principal; 2016-08-02)
DX: M16.11 Unilateral primary osteoarthritis, right hip (principal); I62.9 Nontraumatic intracranial hemorrhage, unspecified; R47.01 Aphasia; F17.200 Nicotine dependence, unspecified, uncomplicated; K21.9 Gastro-esophageal reflux disease without esophagitis
CPT/HCPCS: 1NP; 36415; 73502-RT; 81001; 82436; 87086; 88304; 93005; 93010; 93306; 94799; 97110-GO; 97116-GO; 97161-GP; 97164-GP; 97530-GO; J0131; J0690; J0735; J1100; J2405; J2550; J7042